=== PATIENT | male | born 1950 | race Caucasian/White ===

== ENCOUNTER 2017-03-21 12:12 | Day surgery (SDC) | payer OTHER ==
[2017-03-16 10:56] LABS: BASOPHILS 0.9 %; BASOPHILS ABSOLUTE 0.04 10/3/uL (0.0-0.16); EOSINOPHILS 2.6 %; EOSINOPHILS ABSOLUTE 0.11 10/3/uL (0.0-0.53); HEMOGLOBIN 17.3 g/dL (13.6-17.8); IMMATURE GRANULOCYTES 0.2 %; IMMATURE GRANULOCYTES ABSOLUTE 0.01 10/3/uL (0.0-0.11); LYMPHOCYTES 33.4 %; LYMPHOCYTES ABSOLUTE 1.42 10/3/uL (0.67-4.30); MEAN CORPUS HGB CONC 36.4 g/dL (32.0-36.0); MEAN CORPUSCULAR HEMOGLOB 33.9 pg (26.0-34.0); MEAN PLATELET VOLUME 8.4 fL (9.2-13.0); MONOCYTES 7.5 %; MONOCYTES ABSOLUTE 0.32 10/3/uL (0.21-1.20); NEUTROPHILS 55.4 %; NEUTROPHILS ABSOLUTE 2.35 10/3/uL (2.02-8.40); PLATELET COUNT 152 10/3/uL (150-400); RBC DISTRIBUTION WIDTH 14.1 % (12.0-16.0); RED CELL COUNT 5.11 10/6/uL (4.7-6.1); WHITE BLOOD CELLS 4.3 10/3/uL (4.5-10.5)
[2017-03-16 10:57] LABS: HEMATOCRIT 47.5 % (40.0-51.0); MANUAL DIFF NO %
[2017-03-16 11:06] LABS: INTERNATIONAL NORMAL RATI 1.1 UNITS (-); PARTIAL THROMBO TIME 27.2 SEC (22.5-37.2); PROTIME (NOT ORD) 14.5 SEC (12.0-14.5)
[2017-03-16 11:15] LABS: CALCIUM, SERUM 9.2 MG/DL (8.5-10.4); CHLORIDE, SERUM 106 MMOL/L (96-112); CO2 (CARBON DIOXIDE) 26 MMOL/L (24-34); CREATININE 1.35 MG/DL (0.70-1.30); GFR AFRICAN AMERICAN 62 ML/MIN (>=60); GFR NON AFRICAN AMERICAN 54 ML/MIN (>=60); GLUCOSE, SERUM 92 MG/DL (60-99); POTASSIUM, SERUM 4.2 MMOL/L (3.5-5.3); SODIUM, SERUM 138 MMOL/L (135-148)
[2017-03-16 11:16] LABS: BUN (BLOOD UREA NITROGEN) 12 MG/DL (6-23)
--- NOTE | ~2017-03-21 | OP ---
Record Of Operation [facility] [address] [place]. [address] NAME: DNON KAPADIA : 46 STATUS : REG [facility] PAT#: [id number] AGE: 66 ADM/REG DATE : 03/21/17 MR#: [id number] REPORT SERV DATE: 03/21/17 DICTATED BY: MAICOL SUÁREZ DATE: 03/21/17 REPORT STATUS : Draft TRANSCRIBED BY: MODL DATE: 03/21/17 DATE OF PROCEDURE: 03/21/2017 PREOPERATIVE DIAGNOSIS: Multifocal bladder tumors. POSTOPERATIVE DIAGNOSIS: Multifocal bladder tumors. PROCEDURE PERFORMED: Cystoscopy, multiple cold-cup bladder biopsies, fulguration of multiple bladder lesions. SURGEON: Maicol Suárez M.D. ANESTHESIA: General. ESTIMATED BLOOD LOSS: 5 mL. INDICATIONS: This is a 66-year-old white male, long-term smoker, with recurrent bladder cancer. Office cystoscopy has shown a papillary tumor involving or immediately adjacent to the left ureteral orifice, as well as another slightly smaller tumor on the anterior wall. We are planning endoscopic resection and fulguration. Risks of infection, bleeding, failure, need for further surgery have been discussed. PROCEDURE IN DETAIL: The patient was taken to the operating room and underwent a general anesthetic. He was placed in the lithotomy position on the table, and his external genitalia were sterilely prepped and draped. The 22-Yi cystoscope sheath with 30-degree lens was inserted under direct vision per urethra with the aid of the video monitor. The anterior urethra looked relatively normal. 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 The bladder was thoroughly inspected. It was mildly trabeculated. There was a papillary tumor immediately adjacent to the left orifice. It did not involve the orifice but extended right up to it. The right orifice was normal. There were scars throughout the bladder. There was another area of papillary change in the anterior bladder wall. The cold-cup biopsy forceps was used to biopsy the area of the anterior bladder wall and three or four cold cup biopsies were taken there. The Bugbee electrode was used to thoroughly fulgurate this area. Another area that had a little bit of abnormal, reddish, mucosal change on the posterior wall was fulgurated. The cold-cup biopsy forceps was then used to biopsy the lesion immediately adjacent to the left orifice, we got three samples from this as well. The Bugbee electrode was used very judiciously cauterize the base of this tumor. The cautery extended right up to the medial border of the orifice, however, the orifice itself was patent. Following the complete tumor cautery there, I inserted a [place] catheter up into the orifice and this advanced up easily and the orifice did not appear to be compromised or fulgurated in any way, so no attempt was made to perform retrograde pyelography or leave a stent. The endoscopic apparatus was withdrawn from the bladder and an 18-Yi catheter was placed to gravity drainage. The patient was taken to recovery in stable condition. Record Of Operation [facility] [id number] [facility] [place]. [address] NAME: DONN KAPADIA : 46 STATUS : REG [facility] PAT#: [id number] AGE: 66 ADM/REG DATE : 03/21/17 MR#: [id number] REPORT SERV DATE: 03/21/17 DICTATED BY: MAICOL SUÁREZ DATE: 03/21/17 REPORT STATUS : Draft TRANSCRIBED BY: ISHAAN DATE: 03/21/17 MARIAM/ISHAAN Maicol Suárez M.D. / [id number] CC: Drake Carvalho M.D.
[~2017-03-21 12:12] MED LIST: CILOSTAZOL100 MG PO; PLETAL100 PO; Z300 PO; ZESTRIL10 MG PO; ZESTRIL5 MG PO
[2017-05-24] MEDS ORDERED: ZESTRIL20 MG PO (12:05)
[2017-05-24] MEDS ORDERED: ACET500CAP PO (12:05)
[2017-05-24] MEDS ORDERED: Z300 PO (12:05)
[2017-05-24] MEDS ORDERED: BEN25 PO (12:06)
[2017-05-26] MEDS ORDERED: PLAVIX PO (11:44)
[2017-05-26] MEDS ORDERED: LIPITOR80 MG PO (11:45)
[2017-05-26] MEDS ORDERED: NORV10 PO (11:45)
[2017-05-26] MEDS ORDERED: ASAB PO (11:46)
[2017-05-26] MEDS ORDERED: HABIT14 TOP (11:48)
== END 2017-03-21 22:07 | disposition home or self-care (01) ==
LOC: SDC 12:12
PROVIDERS: Urology
PROC: 0TBB8ZX Excision of Bladder, Via Natural or Artificial Opening Endoscopic, Diagnostic (ICD-10-PCS; 2017-03-21)
PROC: 0TBB8ZX Excision of Bladder, Via Natural or Artificial Opening Endoscopic, Diagnostic (ICD-10-PCS; principal; 2017-03-21 13:45)
PROC: 0T5B8ZZ Destruction of Bladder, Via Natural or Artificial Opening Endoscopic (ICD-10-PCS; 2017-03-21 13:45)
DX: C67.0 Malignant neoplasm of trigone of bladder (principal); N30.20 Other chronic cystitis without hematuria; I10 Essential (primary) hypertension; I73.9 Peripheral vascular disease, unspecified; J45.909 Unspecified asthma, uncomplicated; F17.210 Nicotine dependence, cigarettes, uncomplicated; Z88.5 Allergy status to narcotic agent; Z79.899 Other long term (current) drug therapy; Z98.890 Other specified postprocedural states
CPT/HCPCS: 71020; 80048; 85025; 85610; 85730; 88305; 93005; A9270-GY; C1758; J2250; J2405; J3010; J9280; Q9967